=== PATIENT | male | born 1975 | race Caucasian/White ===

== ENCOUNTER 2018-11-14 12:53 | Emergency (ER) | payer SELFPAY ==
[2018-11-14 12:57] VITALS: BP 165/125; PULSE 103; RESP 20; TEMP 36.4; O2SAT 98
--- NOTE | 2018-11-14 13:14 | W.ED.GENAD ---
Discharge Plan Disposition Patient Disposition: HOME Condition: Good Discharge Details Chief Complaint: GenMedical Clinical Impression: Diabetes, Dehydration, Lightheadedness Primary Care Provider: None,None ED Provider: Favian Gallardo Home Meds and New Rx's Prescriptions: New Accu-Chek Guide strip .ROUTE .MEDSUPPLY Qty: 50 RF: 0 blood-glucose meter kit .ROUTE .MEDSUPPLY Qty: 1 RF: 0 metformin 500 mg tablet extended release 24hr 500 mg PO QPM Qty: 60 RF: 0 blood sugar diagnostic strip .ROUTE .MEDSUPPLY Qty: 50 RF: 0 Discharge Instructions Instructions: Meal Planning with Diabetes Exchanges (GEN) Additional Instructions: Please take the metformin every night as directed. Please avoid any carbs, pasta, sugary sweets, sodas. Please drink 10-12 cups of water per day. We will set up a family doctor for you, you will be contacted with the appointment date. Please do not miss this. Please check your blood sugar daily, record the findings and monitor it closely if you notice any worsening of your symptoms, or any new symptoms such as vomiting, diarrhea, fever, chills, shortness of breath, chest pain, numbness, weakness, or fainting , please return immediately to the emergency department for reevaluation. Please follow up with your primary care provider as soon as possible for reassessment and reevaluation. As always, it was a pleasure participating in your medical care today. . Discharge Data Discharge Date/Time-TO BE ENTERED AT DEPARTURE: 11/14/18 15:10 Medical Decision Making A very pleasant 43-year-old male who presents with symptoms of 5 days of mild lightheadedness, polyuria, and a notably elevated blood sugar. He has no history of diabetes, but he is mildly obese and has a family history of type 2 diabetes. Laboratory workup was performed and demonstrates sugar of 531, mild anion gap of 15, normal potassium, slightly low sodium, mildly elevated white count at 15, with no bandemia. No fevers or chills. No cough or dysuria. Urinalysis is negative for signs of infection. Signs and symptoms are consistent with notable dehydration, hyperglycemia, type 2 diabetes. Patient was rehydrated with 1 L of normal saline and multiple cups of water. Is feeling much better after rehydration. Additionally he was given subcu insulin which also notably improved his glucose on recheck. Signs and symptoms are consistent with new onset type 2 diabetes, with no signs of severe infection, notably improving glucose after insulin administration, no other significant abnormalities on exam and no evidence of severe DKA, I feel that the patient can be discharged home. I did discuss admission, as well as insulin the patient made it clear that he would like to go home at this time, and he will not be using any needles. Because of this we will start the patient on metformin, give a prescription for diabetic test strips Accu-Chek monitor, recommend close follow-up in the next 1-2 weeks with a primary care provider for new onset diabetes. We discussed red flags for which to return, appropriate dietary and lifestyle changes for his new diabetes, I have extensively reviewed the treatment plan and discharge instructions with the patient and their family. I have addressed all patient concerns at this time. The patient and family was made aware of what symptoms to monitor for that would warrant a return to the emergency department. Discussed the plan with the patient and family, they demonstrate verbal understanding and agreement with our assessment and plan at this time. EKG 13: 42 Rate 88, CA 152, QTc 428, QRS 96, sinus rhythm, no significant ST elevations or depressions, inverted T wave is present in lead III, questionable Q waves in lead III. No broad terminal S wave in lead I. no evidence of STEMI. HPI General Date/Time Provider Initiated Documentation: 11/14/18 12:57. HPI Narrative: This is a 43-year-old male with no past medical history primarily because he does not see a doctor, who presents today for evaluation of mild lightheadedness, dizziness, notable thirstiness and polyuria. Patient states that he looked up his symptoms on [facility] which recommended that he should check his blood sugar. He went to [facility], but a sugar testing device, and it said that his sugar was off the charts and recommended he come in. He denies any headache, syncope, chest pain or shortness of breath. He does have a family history of type 2 diabetes. He states that he eats pasta on a regular basis, as well as sugary foods. He denies any IV or illicit drug use, vomiting, diarrhea, numbness tingling or weakness. He has no other complaints at this time. No other modifying factors. Related Data Home Medications Medication Instructions Recorded Confirmed blood sugar diagnostic #50 each 11/14/18 blood sugar diagnostic [Accu-Chek #50 each 11/14/18 Guide] blood-glucose meter #1 each 11/14/18 metformin 500 mg PO QPM #60 tab 11/14/18 Previous Rx's Medication Instructions Recorded blood sugar diagnostic #50 each 11/14/18 blood sugar diagnostic [Accu-Chek #50 each 11/14/18 Guide] blood-glucose meter #1 each 11/14/18 metformin 500 mg PO QPM #60 tab 11/14/18 Allergies Allergy/AdvReac Type Severity Reaction Status Date / Time No Known Allergies Allergy Unverified 11/14/18 15:35 General Stated Complaint: GenMedical ZACHARY: 3 Review of Systems Review of Systems All systems reviewed & are unremarkable except as noted in HPI and below PFSH Social History Smoking/Tobacco Use Status: Current every day Alcohol Intake: never Drug use: Never Substance use type: does not use Do you feel safe at home: Yes Do you feel safe in your relationship?: Yes Exam Narrative Exam Narrative: 1.Const: Well-nourished, Well-developed, appearing stated age 2.Eyes: PERRL, no conjunctival injection, and symmetrical lids. 3.ENT: Atraumatic external nose and ears. Notably dry MM. Neck: Symmetric, trachea midline, No thyromegaly. 4.CVS: +S1/S2, No murmurs or gallops. Peripheral pulses 2+ and equal in all extremities. Brisk capillary refill in all extremities. 5.RESP: Unlabored respiratory effort. Clear to auscultation bilaterally. No wheezes rales or rhonchi 6.GI: Soft, Nontender/Nondistended, No hepatosplenomegaly. No guarding or rebound. 7.MSK: Normocephalic/Atraumatic, Extremities w/o deformity or ttp No cyanosis or clubbing, Normal movement of all extremities 8.Skin: Warm, Dry. No rashes or lesions. 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 Sensation grossly intact, no focal neurologic deficits. All 6 cardinal planes of vision are fully intact. No evidence of rotatory or vertical nystagmus. The patient demonstrated a normal [id number], good dexterity. There was no evidence of dysdiadochokinesia. Patient was able to ambulate without difficulty. There was no wide-based gait. Romberg, and [id number] are both normal on testing. Sensation was intact bilaterally as well as muscle strength bilaterally for all extremities. Patient was able to verbalize butter cup with no slurring, or miss pronunciation. 10.Psych: (AAO) x3. Appropriate mood and affect Course Vital Signs Temperature 36.4 C L 11/14/18 12:57 Pulse 103 H 11/14/18 12:57 Respiratory Rate 20 11/14/18 12:57 Blood Pressure 165/125 H 11/14/18 12:57 Pulse Oximetry 98 11/14/18 12:57 Temperature 36.4 C L 11/14/18 12:57 Temperature Source Skin 11/14/18 12:57 Pulse 103 H 11/14/18 12:57 Respiratory Rate 20 11/14/18 12:57 Blood Pressure 165/125 H 11/14/18 12:57 Blood Pressure Position Sitting 11/14/18 12:57 Pulse Oximetry 98 11/14/18 12:57 Oxygen Delivery Method Room Air 11/14/18 12:57 Oxygen Flow Rate 0 11/14/18 12:57
[2018-11-14] MEDS: Normal Saline 1,000 ML 1000 ML IV (13:34)
[2018-11-14 13:37] LABS: Abs Immature Grans 0.07 k/cumm (0.0-0.09); Absolute Basophil Count 0.05 k/cumm (0.0-0.2); Basophils % 0.3; Eosinophils % 1.6; HCT 44.4 % (40.0-50.0); HGB 15.7 g/dL (13.5-17.5); Immature Grans % 0.5; Lymphocytes % 25.2; Mean Corp. HGB Concentration 35.4 g/dL (32.0-36.0); Mean Corpuscular Hemoglobin 29.7 pg (27.0-33.0); Mean Corpuscular Volume 83.9 fL (80-95); Mean Platelet Volume 9.7 fL (8.0-11.0); Neutrophils % 66.4; Platelet Count 326 x1000/uL (130-400); RBC 5.29 m/cumm (4.50-6.00); RBC Distribution Width 12.5 % (11.8-14.1); White Blood Cell Count 15.22 k/cumm (4.4-10.8)
[2018-11-14 13:39] LABS: Absolute Eosinophil Count 0.24 k/cumm (0.0-0.7); Absolute Lymphocyte Count 3.84 k/cumm (1.2-3.4); Absolute Monocyte Count 0.91 k/cumm (0.11-0.7); Absolute Neutrophil Count 10.11 k/cumm (1.2-6.7)
[2018-11-14 13:41] LABS: Bilirubin Negative (Negative); Blood Trace-lysed (Negative); Clarity Clear; Glucose 500 mg/dL (Negative); Ketones 80 mg/dL (Negative); Leukocyte Esterase Negative (Negative); Nitrite Negative (Negative); Specific Gravity 1.015 (1.005-1.025); Urobilinogen 0.2 EU/dL (Up TO 0.2)
[2018-11-14] MEDS: Insulin REGULAR-Human 100 UNITS/ML UNIT 15 UNITS SC (13:46)
[2018-11-14 13:54] LABS: Hemoglobin A1C 10.5 % (4.5-6.2)
[2018-11-14 13:55] LABS: ALT 31 U/L (12-78); AST 20 U/L (15-37); Albumin 3.7 g/dL (3.4-5.0); Alkaline Phosphatase 180 U/L (46-116); Anion Gap 15.3 mmol/L (3-11); BUN 14 mg/dL (7-18); Bilirubin, Total 0.8 mg/dL (0.2-1.0); CO2 22.7 mmol/L (21.0-32.0); CREATININE 0.99 mg/dL (0.70-1.30); Calcium 8.8 mg/dL (8.5-10.1); Chloride 90 mmol/L (98-107); Sodium 128 mmol/L (136-145); Total Protein 8.3 g/dL (6.4-8.2)
[2018-11-14 14:06] LABS: Bacteria Negative HPF (Negative); Crystals Negative HPF (Negative); Epithelial Cells Rare HPF (Negative); RBC 0-2 (0-2); WBC 0-2 HPF (0-5)
[2018-11-14 14:07] LABS: C & S Indicated? No; Casts Negative LPF (Negative); Mucus Negative (Negative)
[2018-11-14 14:11] LABS: Glucose 531 mg/dL (70-100)
[2018-11-14] MEDS: metFORMIN C.R. 500 MG TABCR 1500 MG PO (15:10)
[2018-11-14 15:12] VITALS: BP 144/77; PULSE 89; RESP 20; TEMP 36.7; O2SAT 96
--- NOTE | 2018-11-15 10:02 | NUR.NOTE ---
Nursing Note: Faxed to Evelin Jj NP who is on for telephone call a referral on patient. Pt has not PCP. Alpa Israel.
== END 2018-11-14 15:10 | disposition home or self-care (01) ==
PROVIDERS: Emergency Provider Student in an Organized Health Care Education/Training Program
DX: E11.65 Type 2 diabetes mellitus with hyperglycemia (principal); E86.0 Dehydration; R42 Dizziness and giddiness; Z79.4 Long term (current) use of insulin
CPT/HCPCS: 36416; 80053; 82962; 93005; 96360; 96372; 99285; 81003; 81015; 83036; 85025; 93010; 99284